=== PATIENT | female | born 1975 | race African-American/Black ===

== ENCOUNTER 2022-01-07 21:50 | Observation (INO) | payer OTHER ==
[2022-01-07] MEDS ORDERED: ONDANSETRON 4 MG/2 ML VIAL ONE (23:14)
[2022-01-07] MEDS ORDERED: ASPIRIN 81 MG CHEWABLE TABLET ONE (23:14)
[2022-01-07 23:30] LABS: Absolute Lymphocytes (CBC) 1.1 K/uL (0.7-4.9); Hematocrit 39.8 % (36.0-45.0); Lymphocytes % 8.8 % (15.3-44.8); MPV 8.8 fL (7.6-11.3); RBC Red Blood Cell Count 4.45 M/uL (3.86-4.86)
[2022-01-07 23:31] LABS: Protime INR 1.08
[2022-01-07 23:54] LABS: Bilirubin Direct 0.1 mg/dL (0-0.2); Bilirubin Total 0.4 mg/dL (0.2-1.0); Magnesium 2.2 mg/dL (1.8-2.4); Potassium 3.7 mmol/L (3.5-5.1); Protein, Total 8.2 g/dL (6.4-8.2); Troponin High Sensitivity 5.9 pg/mL (<58.9)
--- NOTE | 2022-01-08 01:09 | EDPHYS ---
Physician Documentation [facility] Name: Randa Garcia Age: 46 yrs Sex: Female : 1975 Arrival Date: 01/07/2022 Time: 21:54 Bed 4 Private MD: JULES Physician Pepe Abbasi HPI: 01/08 01:03 This 46 yrs old Black Female presents to ER via Ambulatory with complaints of derrick Nausea/Vomiting. 01:03 The patient presents to the emergency department with nausea, abdominal pain. derrick 01:03 The patient or guardian reports chest pain that is located primarily in the substernal derrick area. Onset: just prior to arrival. Onset: The symptoms/episode began/occurred yesterday. Possible causes: unknown. The symptoms are aggravated by nothing. The symptoms are alleviated by nothing. The pain radiates to back. Associated signs and symptoms: Pertinent positives: belching. Associated signs and symptoms: Pertinent positives: lightheadedness, shortness of breath. The chest pain is described as a pressure. Duration: The patient or guardian reports multiple episodes, that are intermittent. 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 - Social history:: Smoking status: Patient denies any tobacco usage or history of. - Family history:: not pertinent. ROS: 01/08 01:03 Constitutional: Negative for fever, chills, and weight loss, Eyes: Negative for injury, derrick pain, redness, and discharge, ENT: Negative for injury, pain, and discharge, Neck: Negative for injury, pain, and swelling, Respiratory: Negative for shortness of breath, cough, wheezing, and pleuritic chest pain, Back: Negative for injury and pain, : Negative for injury, bleeding, discharge, and swelling, MS/Extremity: Negative for injury and deformity, Skin: Negative for injury, rash, and discoloration, Neuro: Negative for headache, weakness, numbness, tingling, and seizure, Psych: Negative for depression, anxiety, suicide ideation, homicidal ideation, and hallucinations, Allergy/Immunology: Negative for hives, rash, and allergies, Endocrine: Negative for neck swelling, polydipsia, polyuria, polyphagia, and marked weight changes, Hematologic/Lymphatic: Negative for swollen nodes, abnormal bleeding, and unusual bruising. Cardiovascular: Positive for chest pain, of the chest. Abdomen/GI: Positive for abdominal pain, of the epigastric area. Exam: 01:03 Constitutional: This is a well developed, well nourished patient who is awake, alert, derrick and in no acute distress. Head/Face: Normocephalic, atraumatic. Eyes: Pupils equal round and reactive to light, extra-ocular motions intact. Lids and lashes normal. Conjunctiva and sclera are non-icteric and not injected. Cornea within normal limits. Periorbital areas with no swelling, redness, or edema. ENT: Nares patent. No nasal discharge, no septal abnormalities noted. Tympanic membranes are normal and external auditory canals are clear. Oropharynx with no redness, swelling, or masses, exudates, or evidence of obstruction, uvula midline. Mucous membranes moist. Neck: Trachea midline, no thyromegaly or masses palpated, and no cervical lymphadenopathy. Supple, full range of motion without nuchal rigidity, or vertebral point tenderness. No Meningismus. Chest/axilla: Normal chest wall appearance and motion. Nontender with no deformity. No lesions are appreciated. Cardiovascular: Regular rate and rhythm with a normal S1 and S2. No gallops, murmurs, or rubs. Normal PMI, no JVD. No pulse deficits. Respiratory: Lungs have equal breath sounds bilaterally, clear to auscultation and percussion. No rales, rhonchi or wheezes noted. No increased work of breathing, no retractions or nasal flaring. Back: No spinal tenderness. No costovertebral tenderness. Full range of motion. Skin: Warm, dry with normal turgor. Normal color with no rashes, no lesions, and no evidence of cellulitis. MS/ Extremity: Pulses equal, no cyanosis. Neurovascular intact. Full, normal range of motion. Neuro: Awake and alert, GCS 15, oriented to person, place, time, and situation. Cranial nerves II-XII grossly intact. Motor strength 5/5 in all extremities. Sensory grossly intact. Cerebellar exam normal. Normal gait. Psych: Awake, alert, with orientation to person, place and time. Behavior, mood, and affect are within normal limits. 01:03 ECG was reviewed by the Attending Physician. 01:03 Abdomen/GI: Inspection: abdomen appears normal, Bowel sounds: normal, Palpation: mild abdominal tenderness, in the epigastric area, Liver: no appreciated palpable abnormalities, Hernia: not appreciated. Vital Signs: 01/07 22:40 BP 166 / 111; Pulse 90; Resp 18; Temp 99.1(O); Pulse Ox 99% ; Weight 90.72 kg; Height 5 vc1 ft. 6 in. (167.64 cm); Pain 0/10; 01/08 06:02 Pulse 96; Resp 19; Pulse Ox 98% on R/A; sm5 01/07 22:40 Body Mass Index 32.28 (90.72 kg, 167.64 cm) vc1 MDM: 01/07 22:50 Patient medically screened. derrick 01/08 03:16 Differential diagnosis: Nonspecific abd pain, gastritis, cholecystitis, pancreatitis, derrick appendicitis, diverticulitis, viral gastroenteritis, gastroenteritis. HEART Score: History: Slightly Suspicious (0), ECG: Normal (0), Age: > 45 and < 65 years (1), Risk Factors: 1 or 2 risk factors (1), [+ Family HX] [Obesity] Troponin: < or = 1 x Normal Limit (0), Total Score = 2. The patient was given aspirin in the Emergency Department. The patient's deep vein thrombosis risk score was calculated as follows: Total Score: 0. This patient was found to be at low risk for a deep vein thrombosis by using the Well's assessment criteria. The patient's pulmonary embolism risk score was calculated as follows: Total Score: 0-2 points. This patient was found to be at low risk for a pulmonary embolism by using the Well's assessment criteria. JULEE Risk Score: TOTAL SCORE = 0. Data reviewed: vital signs, nurses notes, lab test result(s), EKG, radiologic studies, CT scan, plain films. 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 Test interpretation: by ED physician or midlevel provider: ECG, plain radiologic studies. Counseling: I had a detailed discussion with the patient and/or guardian regarding: the historical points, exam findings, and any diagnostic results supporting the discharge/admit diagnosis, the presence of at least one elevated blood pressure reading (>120/80) during this emergency department visit, lab results, radiology results, the need for further work-up and treatment in the hospital. 01/07 22:50 Order name: Basic Metabolic Panel; Complete Time: 00:17 01/07 22:50 Order name: CBC with Diff; Complete Time: 00:17 01/07 22:50 Order name: LFT's; Complete Time: 00:17 01/07 22:50 Order name: Magnesium; Complete Time: 00:17 01/07 22:50 Order name: NT PRO-BNP; Complete Time: 00:17 01/07 22:50 Order name: PT-INR; Complete Time: 00:17 01/07 22:50 Order name: Troponin HS; Complete Time: 00:17 01/07 22:50 Order name: XRAY Chest (1 view) 01/07 22:50 Order name: Lipase; Complete Time: 00:17 [facility] 01/07 22:50 Order name: SARS-COV-2 RT PCR (Document "Date of Onset" if Symptomatic); Complete Time: [facility] :01/08 00:29 Order name: CT Aorta for Dissection [facility] 01/08 03:15 Order name: US Abdomen Limited [facility] 01/08 03:55 Order name: Troponin High Sensitivity [facility] 01/08 05:01 Order name: Troponin High Sensitivity [facility] 01/07 22:50 Order name: EKG; Complete Time: 22:50 01/07 22:50 Order name: Cardiac monitoring; Complete Time: 23:05 [facility] 01/07 22:50 Order name: EKG - Nurse/Tech; Complete Time: 23:05 [facility] 01/07 22:50 Order name: IV Saline Lock; Complete Time: 23:05 derrick 01/07 22:50 Order name: Labs collected and sent; Complete Time: 23:15 01/07 22:50 Order name: O2 Per Protocol; Complete Time: 23:05 01/07 22:50 Order name: O2 Sat Monitoring; Complete Time: 23:05 01/07 22:50 Order name: Urine Dipstick-Ancillary (obtain specimen) derrick EC:03 Rate is 81 beats/min. Rhythm is regular. QRS [place] is Normal. [place] interval is normal. QRS derrick interval is normal. QT interval is normal. No Q waves. T waves are Normal. No ST changes noted. Clinical impression: Normal ECG and No evidence of ischemia. Interpreted by me. Reviewed by me. Administered Medications: 01/07 23:15 Drug: Zofran (Ondansetron) 4 mg Route: IVP; Site: right antecubital; 5 01/08 04:25 Follow up: Response: No adverse reaction [facility] 01/07 23:15 Drug: Aspirin Chewable Tablet 81 mg Route: PO; 5 01/08 04:25 Follow up: Response: No adverse reaction [facility] 02:25 Drug: GI Cocktail without - (Maalox Suspension 30 ml, Lidocaine Liquid 2 % 15 sm5 ml) Route: PO; 04:25 Follow up: Response: No adverse reaction [facility] 02:25 Drug: morphine 2 mg Route: IV; Rate: per protocol; Site: right antecubital; 5 04:25 Follow up: Response: No adverse reaction [facility] 04:20 Drug: Zosyn (piperacillin-tazobactam) 3.375 grams Route: IVPB; Infused Over: 60 mins; 5 Site: right antecubital; 05:22 Follow up: IV Status: Completed infusion; IV Intake: 100ml [facility] Disposition Summary: 01/08/22 01:07 Hospitalization Ordered Hospitalization Status: Observation derrick Provider: Theo Faulkner cha Location: Telemetry/MedSurg (observation) derrick Condition: Stable derrick Problem: new derrick Symptoms: have improved derrick Bed/Room Type: Standard [facility] Room Assignment: 206(01/08/22 02:40) Diagnosis - Chest pain, unspecified derrick - Functional dyspepsia - indigestion derrick - Essential (primary) hypertension derrick - Cholecystitis, unspecified derrick - Other cholelithiasis with obstruction derrick - Elevated white blood cell count derrick Forms: - Medication Reconciliation Form derrick - SBAR form derrick Signatures: Dispatcher [employer] EDPepe Desai MD MD cha Garcia, Cindy, RN RN Mckayla Regalado RN RN 5 Rabia Hernandes RN RN vc1 Corrections: (The following items were deleted from the chart) 02:40 01:07 derrick 03:20 03:18 Calculus of gallbladder without cholecystitis without obstruction derrick meza
--- NOTE | 2022-01-08 01:09 | ER ---
Nurse's Notes [facility] Name: Randa Garcia Age: 46 yrs Sex: Female : 1975 Arrival Date: 01/07/2022 Time: 21:54 Bed 4 Private MD: Diagnosis: Chest pain, unspecified;Functional dyspepsia-indigestion;Essential (primary) hypertension;Cholecystitis, unspecified;Other cholelithiasis with obstruction;Elevated white blood cell count Presentation: 01/07 22:36 Chief complaint: Patient states: "I woke up feeling like there is gas trapped in my vc1 chest, I have been burping but I havent been able to get it out, I am nauseated and I have been vomiting all day. Coronavirus screen: Vaccine status: Patient reports being unvaccinated. fatigue, nausea, vomiting. Client presents with at least one sign or symptom that may indicate coronavirus-19. Standard/surgical mask placed on the client. Provider contacted for isolation considerations. Ebola Screen: No symptoms or risks identified at this time. Risk Assessment: Do you want to hurt yourself or someone else? Patient reports no desire to harm self or others. Onset of symptoms was January 07, 2022 at 08:00. 22:36 Method Of Arrival: Ambulatory vc1 22:36 Acuity: FELIPA 3 vc1 01/08 03:22 Initial Sepsis Screen: Does the patient meet any 2 criteria? No. Patient's initial sm5 sepsis screen is negative. Does the patient have a suspected source of infection? No. Patient's initial sepsis screen is negative. Triage Assessment: 01/07 22:38 General: Appears in no apparent distress. Behavior is calm, cooperative, appropriate vc1 for age. Pain: Denies pain. GI: Reports nausea, vomiting. 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 - Social history:: Smoking status: Patient denies any tobacco usage or history of. - Family history:: not pertinent. Screenin/16 03:21 Abuse screen: Denies threats or abuse. Denies injuries from another. Nutritional sm5 screening: No deficits noted. Tuberculosis screening: No symptoms or risk factors identified. Fall Risk None identified. Assessment: 01/07 23:00 Neuro: No deficits noted. Level of Consciousness is awake, alert, obeys commands, sm5 Oriented to person, place, time, situation. Cardiovascular: No deficits noted. Capillary refill < 3 seconds Patient's skin is warm and dry. Respiratory: No deficits noted. Airway is patent Trachea midline Respiratory effort is even, unlabored. GI: Abdomen is flat, non-distended, Reports nausea, vomiting. 01/08 00:00 Reassessment: No changes from previously documented assessment. Patient and/or family 5 updated on plan of care and expected duration. Pain level reassessed. 02:00 Reassessment: No changes from previously documented assessment. Patient is alert, 5 oriented x 3, equal unlabored respirations, skin warm/dry/pink. 03:30 Reassessment: pt stating unsure whether she wants to be admitted or not. Dr Abbasi at [facility] bedside explaining need for ultrasound and IV antibiotics. awaiting results to determine whether pt will be admitted to floor or not. 04:30 Reassessment: Patient and/or family updated on plan of care and expected duration. Pain sm5 level reassessed. Patient is alert, oriented x 3, equal unlabored respirations, skin warm/dry/pink. 06:02 Reassessment: No changes from previously documented assessment. 5 Vital Signs: 01/07 22:40 BP 166 / 111; Pulse 90; Resp 18; Temp 99.1(O); Pulse Ox 99% ; Weight 90.72 kg; Height 5 vc1 ft. 6 in. (167.64 cm); Pain 0/10; 01/08 06:02 Pulse 96; Resp 19; Pulse Ox 98% on R/A; sm5 01/07 22:40 Body Mass Index 32.28 (90.72 kg, 167.64 cm) vc1 ED Course: 01/07 21:54 Patient arrived in ED. bp1 22:38 Triage completed. vc1 22:48 Pepe Abbasi MD is Attending Physician. [facility] 23:06 Inserted saline lock: 20 gauge in right antecubital area, using aseptic technique. 5 Blood collected. 23:15 Mckayla Regalado, RN is Primary Nurse. 5 23:26 XRAY Chest (1 view) In Process Unspecified. EDAK 01/08 01:06 Theo Faulkner is Hospitalizing Provider. derrick 01:32 CT Aorta for Dissection In Process Unspecified. EDMS 03:21 Arm band placed on right wrist. 5 03:22 No provider procedures requiring assistance completed. Patient admitted, IV remains in 5 place. 03:23 Patient has correct armband on for positive identification. Bed in low position. Call [facility] light in reach. Side rails up X2. 04:21 Troponin High Sensitivity Sent. 5 Administered Medications: 01/07 23:15 Drug: Zofran (Ondansetron) 4 mg Route: IVP; Site: right antecubital; 5 01/08 04:25 Follow up: Response: No adverse reaction 5 01/07 23:15 Drug: Aspirin Chewable Tablet 81 mg Route: PO; 5 01/08 04:25 Follow up: Response: No adverse reaction [facility] 02:25 Drug: GI Cocktail without - (Maalox Suspension 30 ml, Lidocaine Liquid 2 % 15 sm5 ml) Route: PO; 04:25 Follow up: Response: No adverse reaction 5 02:25 Drug: morphine 2 mg Route: IV; Rate: per protocol; Site: right antecubital; 5 04:25 Follow up: Response: No adverse reaction 5 04:20 Drug: Zosyn (piperacillin-tazobactam) 3.375 grams Route: IVPB; Infused Over: 60 mins; 5 Site: right antecubital; 05:22 Follow up: IV Status: Completed infusion; IV Intake: 100ml [facility] Medication: 03:23 VIS not applicable for this client. 5 Intake: 05:22 IV: 100ml; Total: 100ml. [facility] Outcome: 01:07 Decision to Hospitalize by Provider. derrick 08:51 Patient left the ED. iw Signatures: Dispatcher [employer] EDAK Pepe Abbasi MD MD cha Williams, Irene, RN RN iw Kati Marin Sarah, RN RN 5 Rabia Hernandes RN RN vc1
--- NOTE | 2022-01-08 02:19 | P.HP ---
Certification for Inpatient Patient admitted to: Observation With expected LOS: <2 Midnights Patient will require the following post-hospital care: None Practitioner: I am a practitioner with admitting privileges, knowledge of patient current condition, hospital course, and medical plan of care. Services: Services provided to patient in accordance with Admission requirements found in Title 42 Section 412.3 of the Code of Federal Regulations Patient History Date of Service: 01/08/22 Reason for admission: Chest Pain, Cholecystitis History of Present Illness: Patient is a 46-year-old female who presented to the ED with complaints of chest pressure. She describes the feeling as trapped air. She also reports several episodes of nausea and vomiting. She denies any cardiac history, similar previous episodes, or gall bladder issues. Initially in the ED, she was slightly hypertensive and temp 99.1 Fahrenheit. Chest x-ray negative, glucose 136, WBC 12, BNP 450, troponin WNL. CT angio negative for dissection but did show cholelithiasis with possible cholecystitis. RUQ ultrasound pending. She was given aspirin, GI cocktail, and Zosyn in the ED. ED provider wishes to the patient for further evaluation and treatment. - Past Medical/Surgical History Diabetic: No -: Breast Cancer -: Hysterectomy -: Mastectomy Psychosocial/ Personal History: Patient is visiting from [place]. She is . - Family History Mother -: Hypertension Father -: Hypertension - Social History Smoking Status: Never smoker Alcohol use: No CD- Drugs: No Caffeine use: No Place of Residence: Home Review of Systems Cardiovascular: Chest Pain Gastrointestinal: Nausea, Vomiting, No Distention, Other (Gas) Physical Examination - Physical Exam General: Alert, In no apparent distress, Oriented x3 HEENT: Atraumatic, PERRLA, EOMI, Sclerae nonicteric Neck: Supple, 2+ carotid pulse no bruit, No LAD, Without JVD or thyroid abnormality Respiratory: Clear to auscultation bilaterally, Normal air movement Cardiovascular: No edema, Regular rate/rhythm, Normal S1 S2 Gastrointestinal: Normal bowel sounds, Non-distended, No tenderness Musculoskeletal: No tenderness Integumentary: No rashes Neurological: Normal gait, Normal speech, Normal strength at 5/5 x4 extr, Normal affect - Studies Laboratory Data (last 24 hrs) 01/07/22 23:11: PT 11.9, INR 1.08 01/07/22 23:11: WBC 12.0 H, Hgb 13.5, Hct 39.8, Plt Count 264 01/07/22 23:11: Sodium 137, Potassium 3.7, BUN 13, Creatinine 0.84, Glucose 136 H, Magnesium 2.2, Total Bilirubin 0.4, AST 21, ALT 32, Alkaline Phosphatase 61, Lipase 42 L Assessment and Plan - Problems (Diagnosis) (1) Chest pain Current Visit: Yes Status: Acute Qualifiers: Chest pain type: unspecified Qualified Code(s): R07.9 - Chest pain, unspecified (2) Hypertension Current Visit: Yes Status: Acute Qualifiers: Hypertension type: unspecified Qualified Code(s): I10 - Essential (primary) hypertension (3) Nausea and vomiting Current Visit: Yes Status: Acute Qualifiers: Vomiting type: unspecified Qualified Code(s): R11.2 - Nausea with vomiting, unspecified (4) Cholecystitis with cholelithiasis Current Visit: Yes Status: Acute Qualifiers: Cholelithiasis location: gallbladder Cholecystitis acuity: acute Biliary obstruction: without biliary obstruction Qualified Code(s): K80.00 - Calculus of gallbladder with acute cholecystitis without obstruction - Plan -Cardiology consulted for chest pain although pain likely secondary to gallbladder. -CT showed cholelithiasis with possible cholecystitis. WBC 12. RUQ US pending. Started on zosyn in ED. General surgery consulted. NPO -Lipid panel and TSH pending -Patient does not have history of hypertension but has been hypertensive here. Hydralazine PRN. -Monitor and replete electrolytes per protocol -Lovenox for VTE ppx -Full Discharge Plan: Home Plan to discharge in: 24 Hours - Advance Directives Does patient have a Living Will: No Does patient have a Durable POA for Healthcare: No - Code Status/Comfort Care Code Status Assessed: Yes (Full) Critical Care: No Time Spent Managing Pts Care (In Minutes): 50
[2022-01-08] MEDS ORDERED: MAGNES/ALUMIN/SIMET 30ML UCUP ONE (02:22)
[2022-01-08] MEDS ORDERED: MORPHINE 2 MG/ML SYR ONE (02:23)
[2022-01-08] MEDS ORDERED: LIDOCAINE VISCOUS 2% SOLN 15 ML UDC ONE (02:23)
[2022-01-08] MEDS ORDERED: PIPERACIL/TAZO 3.375 GM VIAL IV ONE (03:35)
[2022-01-08] MEDS ORDERED: NA CHLORIDE 0.9% 100 ML ONE (03:35)
--- NOTE | 2022-01-08 08:51 | RAD REPORT ---
EXAM DESCRIPTION: US - Abdomen Exam Limited - 01/08/2022 7:19 am CLINICAL HISTORY: ABD PAIN COMPARISON: No comparisons FINDINGS: The gallbladder demonstrates multiple shadowing gallstones. No pericholecystic fluid or ga llbladder wall thickening. The common bile duct is normal measuring 4-5 mm. The liver demonstrates no findings of intrahepatic biliary dilatation. IMPRESSION: Cholelithiasis.
[2022-01-08 08:55] VITALS: BP 166/111; TEMP 99.1
[2022-01-08 08:56] VITALS: O2SAT 98
--- NOTE | 2022-01-08 11:52 | RAD REPORT ---
EXAM DESCRIPTION: Single view AP chest radiograph(s) CLINICAL HISTORY: CHEST PAIN. COMPARISON: None. TECHNIQUE: Single view AP chest radiograph(s). FINDINGS: The lungs are clear. No pulmonary infiltrate or edema identified. No pleural effusion. N o pneumothorax. Nonenlarged cardiomediastinal silhouette. No significant osseous abnormality. Surgica l clips project over the right and left chest and in the axillae. IMPRESSION: No acute cardiopulmonary abnormality identified by radiograph. Electronically signed by: Bev Gross MD 01/08/2022 12:03 AM CDT Due to temporary technical issues with the PACS/Fluency reporting system, reports are being signed by the in house radiologists without review as a courtesy to insure prompt reporting. The interpreting radiologist is fully responsible for the content of the report.
--- NOTE | 2022-01-08 15:20 | RAD REPORT ---
EXAM DESCRIPTION: CT CHEST ABDOMEN PELVIS ANGIOGRAPHY WITH IV CONTRAST CLINICAL HISTORY: Cp COMPARISON: None Available TECHNIQUE: Multiple helical axial tomographic images were obtained of the chest, abdomen, and pelvis following administration of intravenous contrast per angiographic protocol. MIP reformatted images w ere obtained. This exam was performed according to our departmental dose-optimization program, which includes autom ated exposure control, adjustment of the mA and/or kV according to patient size and/or use of iterati ve reconstruction technique. FINDINGS: CHEST: Thyroid gland: unremarkable. Axilla: unremarkable. Pulmonary arteries: Peripheral pulmonary arteries are not well evaluated due to suboptimal enhancemen t. Central pulmonary arteries appear patent. Aorta: No evidence of aortic dissection or aneurysm. Mediastinum: Unremarkable. No adenopathy. Heart: Heart is normal in size. Lungs/airways: No consolidation. Airways are patent. Pleural spaces: No significant pleural effusion. No pneumothorax. Osseous: No acute findings. There is partial fusion of the T4-T5 vertebrae. Soft tissues: Unremarkable. Abdomen and pelvis: Liver: There is low-attenuation suggesting fatty changes. Gallbladder/biliary: Gallbladder appears mildly distended. Gallbladder wall appears mildly thickened. Several noncalcified stones in the gallbladder are present. No significant biliary ductal dilatation . Pancreas: Unremarkable. No evidence of ductal enlargement. Spleen: Appears unremarkable. No splenomegaly. Adrenals: Unremarkable. Kidneys and ureters: No evidence of hydronephrosis. Normal enhancement. Bladder: Unremarkable. Pelvic organs: Post hysterectomy changes noted. Bowel: No evidence of bowel obstruction. No bowel wall thickening. Appendix appears unremarkable. Vasculature: No evidence of aortic dissection or aneurysm. Major branches of the aorta appear patent. Nonspecific narrowing of the celiac trunk noted. Peritoneum: No free air. No significant free fluid. Lymph nodes: Unremarkable. Soft tissues: Multiple small calcific densities within the anterior abdominal wall musculature demons trated. There is a tiny fat-containing umbilical hernia. Bones: Unremarkable. IMPRESSION: 1. No acute findings in the chest. 2. Distended gallbladder containing several gallstones with possible mild gallbladder wall thickening , underlying acute cholecystitis would be difficult to exclude and clinical correlation is recommende d. Follow-up ultrasound may be helpful for further evaluation. 3. Hepatic steatosis. Electronically signed by: Estuardo Coyne MD 01/08/2022 2:58 AM CDT Due to temporary technical issues with the PACS/Fluency reporting system, reports are being signed by the in house radiologists without review as a courtesy to insure prompt reporting. The interpreting radiologist is fully responsible for the content of the report.
--- NOTE | 2022-01-08 15:28 | EKG ---
Test Date: 2022-01-07 Test Time: 22:57:35 Education Reporter: ALBIN MEASUREMENT RESULTS: Intervals: Rate: 81 UT: 192 QRSD: 108 QT: 378 QTc: 439 [place]: P: 69 UT: 192 QRS: 38 T: 52 INTERPRETIVE STATEMENTS: Normal sinus rhythm Normal ECG No previous ECG available for comparison Electronically Signed On 01-08-22 15:27:00 CDT by Bigg Hogan
--- NOTE | 2022-01-08 17:54 | P.DS ---
Admission Date: 01/08/22 Discharge Date: 01/08/22 Disposition: AMA-LEFT AGAINST MEDICAL ADVIC Reason for Admission: Chest Pain, Cholecystitis Consultations: General surgery-Dr. Reyna. - Problems (1) Cholecystitis with cholelithiasis Status: Acute Qualifiers: Cholelithiasis location: gallbladder Cholecystitis acuity: acute Biliary obstruction: without biliary obstruction Qualified Code(s): K80.00 - Calculus of gallbladder with acute cholecystitis without obstruction (2) Nausea and vomiting Status: Acute Qualifiers: Vomiting type: unspecified Qualified Code(s): R11.2 - Nausea with vomiting, unspecified Brief History of Present Illness: Patient is a 46-year-old female who presented to the ED with complaints of chest pressure. She describes the feeling as trapped air. She also reported several episodes of nausea and vomiting. She denies any cardiac history, similar previous episodes, or gall bladder issues. Initially in the ED, she was slightly hypertensive and temp 99.1 Fahrenheit. Chest x-ray negative, glucose 136, WBC 12, BNP 450, troponin WNL. CT angio negative for dissection but did show cholelithiasis with possible cholecystitis. She was given aspirin, GI cocktail, and Zosyn in the ED. Patient hospitalized for further management. Hospital Course: Patient admitted to the medical floor and started on antibiotics. Gallbladder ultrasound confirmed cholelithiasis but no no evidence of cholecystitis. Patient seen by general surgery-Dr. Reyna who offered lap cholecystectomy. According to report patient is out of state, was visiting from [place] and preferred to leave as soon as possible and return to [place] for further management. She did not want any surgery here. Patient signed out AGAINST MEDICAL ADVICE and left. She could not wait for me to discuss her medical issues. Vital Signs/Physical Exam: Temp Pulse Resp BP Pulse Ox 99.1 F 96 H 19 166/111 H 01/07/22 22:40 01/08/22 06:02 01/08/22 06:02 01/07/22 22:40 Laboratory Data at Discharge: WBC 12.0 K/uL (4.3-10.9) H 01/07/22 23:11 Hgb 13.5 g/dL (12.0-15.0) 01/07/22 23:11 Hct 39.8 % (36.0-45.0) 01/07/22 23:11 Plt Count 264 K/uL (152-406) 01/07/22 23:11 PT 11.9 SECONDS (9.5-12.5) 01/07/22 23:11 INR 1.08 01/07/22 23:11 Sodium 137 mmol/L (136-145) 01/07/22 23:11 Potassium 3.7 mmol/L (3.5-5.1) 01/07/22 23:11 BUN 13 mg/dL (7-18) 01/07/22 23:11 Creatinine 0.84 mg/dL (0.55-1.3) 01/07/22 23:11 Glucose 136 mg/dL (74-106) H 01/07/22 23:11 Magnesium 2.2 mg/dL (1.8-2.4) 01/07/22 23:11 Total Bilirubin 0.4 mg/dL (0.2-1.0) 01/07/22 23:11 AST 21 U/L (15-37) 01/07/22 23:11 ALT 32 U/L (12-78) 01/07/22 23:11 Alkaline Phosphatase 61 U/L (45-117) 01/07/22 23:11 Lipase 42 U/L (73-393) L 01/07/22 23:11 Followup: NONE,NONE [Primary Care Provider] -
--- NOTE | 2022-01-08 22:11 | CON ---
Date of Consultation: 01/08/2022 Brief History Of Present Illness: The patient is a 46-year-old female, who presented to the ER with complaints of chest pressure boring through to her back in the epigastric and substernal position. I t was boring through to her back after eating meal earlier in the day. She denies having similar epi sodes before or in the past and has not had any history of gallbladder issues by her report. She sta osman that it felt like there was pressure, entrapped air, she thought was basically gas. She did repo rt several episodes of nausea, vomiting associated. She does not have any cardiac history reportedly as well. She denies any change in her bowel or bladder habits as well. No sick contacts. No recen t travel. No new food exposures. Past Medical History: Significant for breast cancer. Past Surgical History: Included double mastectomy and free flap reconstruction at [facility] and hy sterectomy. Social History: She is from [place] and is . Her is present during the examinat ion. She denies smoking, alcohol, or recreational drug use. Family History: Significant for hypertension in both mother and father. Review of Systems: Ten-point review of systems other than HPI, to the chest pain and other symptoms as described in HPI. Physical Examination: General: At the time of my examination; she is awake, alert, and oriented. Psychiatric: She is appropriate, conversive. HEENT: Normocephalic. Sclerae anicteric. Mucous membranes are moist. Oropharynx is clear. Neck: Supple without JVD. Chest: Expansion and excursion. Cardiovascular: Regular rate and rhythm. Pulmonary: Clear to auscultation bilaterally. Abdomen: Soft with positive epigastric right upper quadrant tenderness to palpation. Positive mild voluntary guarding. No rebound. No guarding. No focal peritonitis. Extremities: No clubbing, cyanosis, or edema. Skin: Warm and dry. Laboratory Data: Revealed a white blood cell count of 12.0, hemoglobin was 13.5, hematocrit 39.8, pl atelet count was 264, neutrophils were 87%. Her PT 11.9, INR 1.08. Sodium 137, potassium 3.7, chlor reese 103, carbon dioxide 27, BUN 13, creatinine 0.8, glucose is 136, magnesium 2.2, total bilirubin 0. 4, direct component 0.1, AST 21, ALT 32, alkaline phosphatase was 61. Troponin was 5.9 and 6.0 on lucas bsequent check. ProBNP 450. Her lipase is 42. She had imaging performed, which included a CT of th e abdomen and pelvis, dissection protocol, which was officially read as no acute findings in the ches t, distended gallbladder containing several gallstones with possible mild gallbladder wall thickening . Underlying acute cholecystitis would be difficult to exclude and a clinical correlation recommende d. Hepatic steatosis is also noted. Additionally, she had an abdominal ultrasound performed, which was officially read as cholelithiasis. Gallbladder demonstrates multiple shadowing gallstone. No pe richolecystic fluid or gallbladder wall thickening. Common bile duct is normal measuring 45 mm. The liver demonstrates no findings of intrahepatic biliary dilatation. Assessment And Plan: This is a 46-year-old female, who comes in with signs of cholecystitis/biliary colic with cholelithiasis. 1.IV fluid hydration. 2.Antibiotic coverage. 3.I have explained the risks, benefits, and alternatives of laparoscopic possible open cholecystecto my including, but not limited to bleeding, infection, damage to surrounding tissue, injury to bile du cts, intestines, need for further operation and procedures. The patient and her would rather go home to [place]. They are actually living in [place], which is approximately [place] here. They have requested the ability to leave the hospital and go there; however, given her cur rent pain and situation, I have recommended cholecystectomy. The patient and her have decide d to leave the hospital and stated they will likely proceed against medical advice to leave the hospi emma to proceed to [place] due to logistics and pursue workup in that location due to the logisti cs of their insurance and living situation. As such, I have explained the risks, benefits, and alternatives of the above stated plan. Thank you for this interesting consult. YOANNA/DEVAUGHN Voice ID: [id number] Report ID: [id number]
== END 2022-01-08 08:52 | disposition left against medical advice (07) ==
LOC: ER 21:50 → ERHOLD 01-08 02:28 → 2ND 01-08 03:25
PROVIDERS: ADMIT Internal Medicine; ATTEND Internal Medicine
DX: K80.20 Calculus of gallbladder without cholecystitis without obstruction (principal); R07.9 Chest pain, unspecified; Z53.29 Procedure and treatment not carried out because of patient's decision for other reasons; I10 Essential (primary) hypertension; R11.2 Nausea with vomiting, unspecified; K30 Functional dyspepsia; Z85.3 Personal history of malignant neoplasm of breast; Z90.13 Acquired absence of bilateral breasts and nipples; Z90.710 Acquired absence of both cervix and uterus; Z28.310 Unvaccinated for COVID-19; Z20.822 Contact with and (suspected) exposure to COVID-19; Z82.49 Family history of ischemic heart disease and other diseases of the circulatory system
CPT/HCPCS: 96365; 93005; 85025; 80048; 36415; 83735; 85610; 80076; 84484 ×2; 83690; 83880; 71275; 74175; 71045; 76705; 96375; 99284; U0003; Q9967; J2543; J2270; J2405; G0378 ×2